=== PATIENT | female | born 1965 | race Caucasian/White ===

== ENCOUNTER 2017-12-07 14:12 | Emergency (ER) | payer OTHER ==
[~2017-12-07] VITALS: Ht 167.6 cm; Wt 56.2 kg
[2017-12-07 14:34] VITALS: BP 111/77
--- NOTE | 2017-12-07 14:35 | NUR ---
PATIENT AMBULATED TO BED 2.
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
[2017-12-07] MEDS ORDERED: KETOROLAC 30 MG/ML VIAL IM ONE (14:50)
[2017-12-07 15:52] VITALS: BP 126/78
== END 2017-12-07 15:52 | disposition home or self-care (01) ==
LOC: MED 14:12
DX: R07.89 Other chest pain (principal)
CPT/HCPCS: 71045; 93005; 96372; 99284; J1885; Q0092